=== PATIENT | female | born 1935 | race African-American/Black ===

== ENCOUNTER 2020-12-30 16:41 | Inpatient (IN) ==
[2020-12-30] MEDS ORDERED: ALBUTEROL/IPRATROPIUM 3 ML NEB RESP TX STA (16:54)
[2020-12-30] MEDS ORDERED: FUROSEMIDE 40 MG/4 ML VIAL IV STA (17:15)
[2020-12-30 17:35] LABS: Basophils % 0.1 % (0.0-0.8); Eosinophils # 0.1 10*3/uL (0.0-0.87); Eosinophils % 1.3 % (0.00-10.9); Hematocrit 43.3 VOL% (35.7-47.0); Immature Granulocytes % 0.3 %; Immature Granulocytes Absolute 0.03 #; Lymphocytes # 1.2 10*3/uL (1.4-4.0); Lymphocytes % 12.1 % (21.3-54.2); Mean Platelet Volume 10.3 FL (9.6-12.0); Monocytes % 4.2 % (1.7-12.7); Platelet Count 452 T/CUMM (130-400); Red Blood Count 4.92 MC/CUMM (3.8-5.5); Red Cell Distribution Width 16.1 % (9.3-17.3); White Blood Count 9.7 T/CUMM (4-12)
[2020-12-30 17:38] LABS: Bilirubin,Total 0.4 MG/DL (0.20-1.00); Calcium 8.8 MG/DL (8.5-10.1); Osmolality,Calculated 286.4 MOS/KG (273-304); Potassium 4.7 MMOL/L (3.5-5.1); Total Protein 6.4 G/DL (6.4-8.2)
[2020-12-30] MEDS ORDERED: ENOXAPARIN 100 MG/ML SYRINGE SUBCUT STA (17:53)
[2020-12-30] MEDS ORDERED: ASPIRIN 325 MG TABLET PO STA (17:53)
[2020-12-30] MEDS ORDERED: ZALEPLON 5 MG CAPSULE PO PRN (18:06)
[2020-12-30] MEDS ORDERED: DEXTROSE 50% 25 GM/50 ML VIAL IV PRN (18:06)
[2020-12-30] MEDS ORDERED: GLUCAGON 1 MG VIAL IM PRN (18:06)
[2020-12-30] MEDS ORDERED: ACETAMINOPHEN 325 MG TABLET PO PRN (18:06)
[2020-12-30] MEDS ORDERED: MAGNESIUM SULF RIDER 2 GM/50 ML PREMIX IV PRN (18:06)
[2020-12-30] MEDS ORDERED: MAGNESIUM SULF RIDER 4 GM/100 ML PREMIX IV PRN (18:06)
[2020-12-30] MEDS: INSULIN REGULAR 100 UNIT/ML SUBCUT SCH (23:47)
[2020-12-30] MEDS: ATORVASTATIN 40 MG TABLET PO SCH (23:51)
[2020-12-30] MEDS: CHOLECALCIFEROL 1,000 UNIT TABLET PO SCH (23:51)
[2020-12-30] MEDS: NITROGLYCERIN 2% OINT 1 INCH/GM PACK TOP SCH (23:52)
[2020-12-31 05:26] LABS: Basophils % 0.2 % (0.0-0.8); Eosinophils # 0.1 10*3/uL (0.0-0.87); Eosinophils % 0.5 % (0.00-10.9); Hematocrit 39.5 VOL% (35.7-47.0); Hemoglobin 12.4 GM/DL (12.0-16.0); Immature Granulocytes % 0.3 %; Immature Granulocytes Absolute 0.03 #; Lymphocytes # 1.6 10*3/uL (1.4-4.0); Lymphocytes % 14.8 % (21.3-54.2); Mean Corpuscular HGB Conc 31.4 GM/DL (32-36); Mean Corpuscular Volume 86.8 FL (87-102); Mean Platelet Volume 9.8 FL (9.6-12.0); Monocytes % 8.4 % (1.7-12.7); Neutrophils % 75.8 % (38.7-73.9); Platelet Count 383 T/CUMM (130-400); Red Blood Count 4.55 MC/CUMM (3.8-5.5); Red Cell Distribution Width 15.8 % (9.3-17.3); White Blood Count 10.5 T/CUMM (4-12)
[2020-12-31] MEDS ORDERED: ENOXAPARIN 80 MG/0.8 ML SYRINGE SUBCUT SCH (05:30)
[2020-12-31] MEDS: NITROGLYCERIN 2% OINT 1 INCH/GM PACK TOP SCH ×3 (05:34→18:02)
[2020-12-31 05:54] LABS: Albumin 2.7 G/DL (3.4-5.0); Bilirubin,Total 0.6 MG/DL (0.20-1.00); Calcium 8.4 MG/DL (8.5-10.1); Osmolality,Calculated 284.3 MOS/KG (273-304); Potassium 3.9 MMOL/L (3.5-5.1)
[2020-12-31] MEDS ORDERED: FUROSEMIDE 40 MG/4 ML VIAL IV SCH (08:00)
[2020-12-31] MEDS ORDERED: carvediloL 6.25 MG TABLET PO SCH (08:00)
[2020-12-31] MEDS: INSULIN REGULAR 100 UNIT/ML SUBCUT SCH ×4 (08:19→21:05)
[2020-12-31] MEDS: CHOLECALCIFEROL 1,000 UNIT TABLET PO SCH ×2 (08:28→21:05)
[2020-12-31] MEDS: carvediloL 12.5 MG TABLET PO SCH ×2 (08:28→21:05)
[2020-12-31] MEDS: ASPIRIN 325 MG TABLET PO SCH (08:28)
[2020-12-31] MEDS: PANTOPRAZOLE 40 MG TABLET PO SCH (08:28)
[2020-12-31] MEDS: FUROSEMIDE 40 MG/4 ML VIAL IV SCH (08:29)
[2020-12-31] MEDS: VALSARTAN 160 MG TABLET PO SCH ×2 (08:33→10:20)
[2020-12-31] MEDS ORDERED: POTASSIUM CHLORIDE RIDER 10 MEQ/100 ML PREMIX IV PRN (08:36)
[2020-12-31] MEDS ORDERED: MAGNESIUM SULF RIDER 2 GM/50 ML PREMIX IV PRN (08:36)
[2020-12-31] MEDS ORDERED: ASPIRIN EC 81 MG TABLET PO SCH (09:00)
[2020-12-31] MEDS ORDERED: hydroCHLOROthiazide 25 MG TABLET PO SCH (09:00)
[2020-12-31] MEDS ORDERED: SODIUM CHLORIDE 0.9% 1,000 ML IV SCH (09:00)
[2020-12-31] MEDS ORDERED: ASPIRIN CHEW 81 MG TABLET PO SCH (09:00)
[2020-12-31] MEDS ORDERED: amLODIPine 10 MG TABLET PO SCH (09:00)
[2020-12-31] MEDS ORDERED: diphenhydrAMINE CAP 50 MG CAPSULE PO ONE (12:00)
[2020-12-31] MEDS ORDERED: DIAZEPAM 5 MG TABLET PO ONE (12:00)
[2020-12-31] MEDS ORDERED: LIDOCAINE 1% 20 ML VIAL ONE (12:08)
[2020-12-31] MEDS ORDERED: fentaNYL 100 MCG/2 ML VIAL ONE (12:09)
[2020-12-31] MEDS ORDERED: MIDAZOLAM 2 MG/2 ML VIAL ONE (12:09)
[2020-12-31] MEDS ORDERED: SERTRALINE 25 MG TABLET PO ONE (13:19)
[2020-12-31] MEDS: CLOPIDOGREL 75 MG TABLET PO SCH (13:53)
[2020-12-31] MEDS ORDERED: SERTRALINE 25 MG TABLET PO SCH (21:00)
[2020-12-31] MEDS: ATORVASTATIN 40 MG TABLET PO SCH (21:05)
[2021-01-01] MEDS: NITROGLYCERIN 2% OINT 1 INCH/GM PACK TOP SCH ×2 (00:19→05:42)
[2021-01-01 05:47] LABS: Basophils % 0.2 % (0.0-0.8); Eosinophils # 0.1 10*3/uL (0.0-0.87); Eosinophils % 2.4 % (0.00-10.9); Hematocrit 36.7 VOL% (35.7-47.0); Hemoglobin 11.3 GM/DL (12.0-16.0); Immature Granulocytes % 0.4 %; Immature Granulocytes Absolute 0.02 #; Lymphocytes # 1.3 10*3/uL (1.4-4.0); Lymphocytes % 26.5 % (21.3-54.2); Mean Corpuscular HGB Conc 30.8 GM/DL (32-36); Mean Corpuscular Volume 87.2 FL (87-102); Mean Platelet Volume 9.9 FL (9.6-12.0); Monocytes % 12.3 % (1.7-12.7); Neutrophils % 58.2 % (38.7-73.9); Platelet Count 336 T/CUMM (130-400); Red Blood Count 4.21 MC/CUMM (3.8-5.5); Red Cell Distribution Width 15.9 % (9.3-17.3); White Blood Count 5.1 T/CUMM (4-12)
[2021-01-01 06:12] LABS: Calcium 7.8 MG/DL (8.5-10.1); Osmolality,Calculated 284.1 MOS/KG (273-304); Potassium 3.6 MMOL/L (3.5-5.1)
[2021-01-01 08:17] VITALS: BP 146/74
[2021-01-01 08:55] LABS: Risk Ratio 2.17
[2021-01-01] MEDS: CHOLECALCIFEROL 1,000 UNIT TABLET PO SCH (09:20)
[2021-01-01] MEDS: CLOPIDOGREL 75 MG TABLET PO SCH (09:21)
[2021-01-01] MEDS: VALSARTAN 160 MG TABLET PO SCH ×2 (09:21→09:26)
[2021-01-01] MEDS: carvediloL 12.5 MG TABLET PO SCH (09:21)
[2021-01-01] MEDS: PANTOPRAZOLE 40 MG TABLET PO SCH (09:21)
[2021-01-01] MEDS: ASPIRIN 325 MG TABLET PO SCH (09:21)
[2021-01-01] MEDS: FUROSEMIDE 40 MG/4 ML VIAL IV SCH (09:21)
[2021-01-01] MEDS: INSULIN REGULAR 100 UNIT/ML SUBCUT SCH (09:26)
[2021-01-02] MEDS ORDERED: ASPIRIN EC 81 MG TABLET PO SCH (09:00)
== END 2021-01-01 11:21 | disposition home or self-care (01) | DRG 281 ==
LOC: N.ED 16:41 → N.EDINP 18:06 → N.TELES 21:16
PROVIDERS: ADMIT Emergency Medicine; ATTEND Emergency Medicine
PROC: CLCCHCL (ICD-10-PCS; 2020-12-31 12:45)